=== PATIENT | female | born 1950 | race Caucasian/White ===

== ENCOUNTER → 2022-06-12 11:49 | Outpatient (CLI) | payer MEDICARE, MEDICAID, SELFPAY ==
[2022-06-12 13:17] LABS: BUN Creatinine Ratio 36.7 (6-22); Blood Urea Nitrogen 18 mg/dL (7-17); Calcium 9.7 mg/dL (8.4-10.2); Carbon Dioxide 29 mmol/L (22-32); Chloride 99 mmol/L (98-107); Estimated Glomerular Filt Rate > 60 mL/min (>60); Glucose 79 mg/dL (80-110); HEMOLYSIS < 15 (0-50); Potassium 4.9 mmol/L (3.4-5.1); Sodium 138 mmol/L (137-145)
== END ==
PROVIDERS: PCP Internal Medicine; Referring Provider Internal Medicine Cardiovascular Disease; Visit Provider Internal Medicine Cardiovascular Disease
DX: I10 Essential (primary) hypertension (principal)
CPT/HCPCS: 36415; 80048

== ENCOUNTER → 2022-08-14 12:25 | Outpatient (CLI) | payer MEDICARE, SELFPAY ==
--- NOTE | 2022-08-14 | DI.ECHO.S_ITS ---
[facility] +---------+ : : [address] : [place] : : : : [id number] : : : : Phone: [phone]+ Echocardiogram Report + + :Name: LINDA DELCID Study Date: 08/14/2022 Height: 69 in : :[facility] ReadingLocation: Weight: 151 lb : : Gender: Female BSA: 1.8 m2 : :: 1950 Age: 72 yrs BP: 122/68 mmHg: :Reason For Study: DYSPNEA : :Ordering Physician: JESUS, : :LEIA Performed By: Awa Martinez : :Referring: LEIA JOSHI : + + Interpretation Summary 1) Normal left ventricular thickness, size, and systolic function (EF 60-65%). 2) Moderately to severe enlarged right ventricle with mlidly reduced function. 3) There is mild to moderate mitral regurgitation. 4) There is mild to moderate tricuspid regurgitation. 5) The right ventricular systolic pressure is estimated to be at least 42 mmHg based on an estimated right atrial pressure of 8 mm Hg. 6) No prior Echo available for comparison. Procedure: A two-dimensional transthoracic echocardiogram with color flow and Doppler was performed. The study quality was technically adequate. There is no prior echocardiogram noted for this patient. The patient was in sinus bradycardia with heart rates between 40-65 bpm during the exam. Left Ventricle: The left ventricle is normal in size and wall thickness. The ejection fraction is estimated to be 60-65%. Septal bounce present. Diastolic parameters suggest a relaxation abnormality of the left ventricle, consistent with probable normal filling pressures. Right Ventricle: The right ventricle is moderate to severely dilated. Right ventricular systolic function is mildly reduced. Atria: The left atrium is moderately dilated. The right atrium is moderately dilated. Doppler evidence suggests a right to left interatrial shunt. Mitral Valve: The mitral valve is normal in structure and function. There is mild to moderate mitral regurgitation. Aortic Valve: The aortic valve is trileaflet. The aortic valve opens well. There is no aortic valve stenosis. No aortic regurgitation is present. Tricuspid Valve: The tricuspid valve leaflets are thin and pliable. There is mild to moderate tricuspid regurgitation. The right ventricular systolic pressure is estimated to be at least 42 mmHg based on an estimated right atrial pressure of 8 mm Hg. Pulmonic Valve: The pulmonic valve is not well seen, but is grossly normal. There is no pulmonic valvular regurgitation. Great Vessels: The aortic root is normal size. The dimensions of the ascending aorta are normal. The IVC is dilated (diameter is greater than 2.1 cm) yet it collapses greater than 50% with a sniff. This suggests a right atrial pressure of 8 mm Hg. Pericardium/ Pleura There is no pericardial effusion. There is no pleural effusion. MMode/2D Measurements & Calculations LVIDd: 4.9 cm LVOT diam: 1.9 cm LVIDs: 3.0 cm Ao root diam: 3.4 cm FS: 39.9 % asc Aorta Diam: 3.3 cm EPSS: 0.91 cm IVSd: 0.86 cm LVPWd: 0.73 cm LV hutchinson. diameter/BSA (cm/m^2): 2.7 LV sys. diameter/BSA (cm/m^2): 1.6 LA A2 area: 22.3 cm2 RA long axis: 6.8 cm LA A4 area: 29.9 cm2 RA area: 26.9 cm2 LA length (vol): 6.3 cm RA vol: 90.4 ml LA vol: 89.8 ml RA : 49.3 ml/m2 LA vol index: 49.0 ml/m2 IVC diam: 2.3 cm RVD1 (basal): 5.3 cm TAPSE: 2.3 cm Doppler Measurements & Calculations Ao V2 max: 110.3 cm/sec LVOT Max Mello: 73.0 cm/sec Ao V2 mean: 82.9 cm/sec LV V1 max P.1 mmHg Ao max P.9 mmHg LV V1 VTI: 16.6 cm Ao mean P.0 mmHg JULISSA(I,D): 1.5 cm2 Ao V2 VTI: 31.9 cm JULISSA(V,D): 1.8 cm2 sev ratio: 0.52 JULISSA indexed to BSA (cm^2/m^2): 0.79 MV E max mello: 75.2 cm/sec TR max mello: 290.9 cm/sec MV A max mello: 54.1 cm/sec TR max P.8 mmHg MV E/A: 1.4 PA V2 max: 123.8 cm/sec Med Peak E' Mello: 8.1 cm/sec PA V2 mean: 91.4 cm/sec E/E' med: 9.3 PA mean P.7 mmHg Lat Peak E' Mello: 8.2 cm/sec PA pr(Accel): -6.6 mmHg E/E' lat: 9.2 E/e' average: 9.2 MV dec time: 0.19 sec SV(LVOT): 46.3 ml Reading Physician:11:42 AM
== END ==
PROVIDERS: PCP Internal Medicine; Referring Provider Internal Medicine Cardiovascular Disease; Visit Provider Internal Medicine Cardiovascular Disease
DX: I08.1 Rheumatic disorders of both mitral and tricuspid valves (principal); I27.81 Cor pulmonale (chronic); R06.09 Other forms of dyspnea
CPT/HCPCS: 93306

== ENCOUNTER → 2024-02-12 13:56 | Outpatient (CLI) | payer MEDICARE, MEDICAID, SELFPAY ==
--- NOTE | 2024-02-12 13:59 | DI.ECHO.S_ITS ---
[facility]+ [facility] : : [address] : [place] : : [id number] : : Phone: [phone] Echocardiogram Report + + :Name: LINDA DELCID Study Date: 02/12/2024 Height: 69 in : :[facility] ReadingLocation: Weight: 174 lb : : Gender: Female BSA: 1.9 m2 : :: 1950 Age: 73 yrs BP: 113/72 mmHg: :Reason For Study: COR [place], MITRAL INSUFFICIENCY : :Ordering Physician: JESUS, : :LEIA Performed By: Awa Martinez : :Referring: LEIA JOSHI : + + Interpretation Summary 1) Normal left ventricular thickness, size, wall motion, and systolic function (EF 55-60%). 2) Mildly enlarged right ventricle with low normal function. 3) No significant valvular abnormalities. 4) Doppler evidence suggests a left to right interatrial shunt. 5) Compared to the Echo done 08/14/2022, mitral and tricuspid regurgitations have decreaesd from mild-moderate to [facility]. Procedure: A two-dimensional transthoracic echocardiogram with color flow and Doppler was performed. The study quality was technically difficult. Comparison is made with the echocardiogram of 08/14/2022. EKG artificat throughout. The heart rate ranged between 41-84 bpm during the study. Left Ventricle: The left ventricle is normal in size and wall thickness. The ejection fraction is estimated to be 55-60%. Left ventricular systolic function appears normal without focal wall motion abnormalities. Diastolic parameters suggest a relaxation abnormality of the left ventricle, consistent with probable normal filling pressures. Right Ventricle: The right ventricle is mildly dilated. Right ventricular systolic function is at the lower limits of normal. Atria: The left atrial size is normal. Right atrial size is normal. Doppler evidence suggests a left to right interatrial shunt. Mitral Valve: The mitral valve is normal in structure and function. There is mild mitral regurgitation. Aortic Valve: The aortic valve is trileaflet. The aortic valve opens well. There is no aortic valve stenosis. No aortic regurgitation is present. Tricuspid Valve: The tricuspid valve leaflets are thin and pliable. There is mild tricuspid regurgitation. The right ventricular systolic pressure is estimated to be at least 36 mmHg based on an estimated right atrial pressure of 3 mm Hg. Pulmonic Valve: The pulmonic valve leaflets are thin and pliable; valve motion is normal. There is no pulmonic valvular regurgitation. Great Vessels: The aortic root is normal size. The dimensions of the ascending aorta are normal. The IVC is of normal diameter and collapses greater than 50% with a sniff. This suggests a low right atrial pressure of 3 mm Hg. Pericardium/ Pleura There is no pericardial effusion. There is no pleural effusion. MMode/2D Measurements & Calculations LVIDd: 4.6 cm LVOT diam: 2.0 cm LVIDs: 3.5 cm Ao root diam: 2.9 cm FS: 23.1 % asc Aorta Diam: 3.5 cm EPSS: 0.58 cm Ao Arch Diam (Prox Trans): 2.5 cm IVSd: 0.93 cm LVPWd: 0.96 cm LV hutchinson. diameter/BSA (cm/m^2): 2.4 LV sys. diameter/BSA (cm/m^2): 1.8 LA A2 area: 19.8 cm2 RA long axis: 5.2 cm LA A4 area: 20.5 cm2 RA area: 19.4 cm2 LA length (vol): 5.7 cm RA vol: 61.4 ml LA vol: 60.4 ml RA : 31.6 ml/m2 LA vol index: 31.0 ml/m2 IVC diam: 1.6 cm RVD1 (basal): 4.6 cm RVD2 (mid): 3.9 cm TAPSE: 1.6 cm Doppler Measurements & Calculations Ao V2 max: 118.7 cm/sec LVOT Max Mello: 59.0 cm/sec Ao V2 mean: 90.3 cm/sec LV V1 max P.4 mmHg Ao max P.6 mmHg LV V1 VTI: 14.5 cm Ao mean P.5 mmHg JULISSA(I,D): 1.7 cm2 Ao V2 VTI: 26.4 cm JULISSA(V,D): 1.6 cm2 sev ratio: 0.55 JULISSA indexed to BSA (cm^2/m^2): 0.89 MV E max mello: 55.4 cm/sec TR max mello: 285.4 cm/sec MV A max mello: 48.0 cm/sec TR max P.6 mmHg MV E/A: 1.2 PA V2 max: 141.5 cm/sec Med Peak E' Mello: 6.4 cm/sec PA V2 mean: 87.2 cm/sec E/E' med: 8.6 PA mean P.6 mmHg Lat Peak E' Mello: 6.9 cm/sec PA pr(Accel): 15.6 mmHg E/E' lat: 8.1 E/e' average: 8.4 MV dec time: 0.18 sec SV(LVOT): 45.6 ml Reading Physician:10:03 AM
== END ==
PROVIDERS: PCP Internal Medicine; Referring Provider Internal Medicine Cardiovascular Disease; Visit Provider Internal Medicine Cardiovascular Disease
DX: I08.1 Rheumatic disorders of both mitral and tricuspid valves (principal); I27.81 Cor pulmonale (chronic)
CPT/HCPCS: 93306